=== PATIENT | female | born 1945 | race Caucasian/White ===

== ENCOUNTER → 2016-11-16 | Outpatient (CLI) | payer MEDICARE, OTHER ==
[2015-10-10 14:57] VITALS: BP 130/57
[~2016-11-16] MED LIST: ASCO10002 PO; ASPI-482 PO; ATOR10TA60 PO; CALC1TAB PO; FERR-26 PO; FERR47.57 PO; FOLI0.8C PO; FOLI1TAB16 PO; GLUC100018 PO; HYDR-2762 PO; MULT-650 PO; WARF2TAB7 PO; WARF3TAB7 PO; ZOLPIDEM 5 MG TABLET. PO ONE; [UNRECOGNIZED DRUG - CODE] PO
== END | disposition home or self-care (01) ==
LOC: SLPLAB 18:16
PROVIDERS: ATTEND Internal Medicine Pulmonary Disease
DX: G47.33 Obstructive sleep apnea (adult) (pediatric) (principal)
CPT/HCPCS: 95810

== ENCOUNTER 2018-06-23 07:25 | Day surgery (SDC) | payer MEDICARE, OTHER ==
[~2018-06-23] VITALS: Ht 157.5 cm; Wt 109.0 kg
[~2018-06-23 07:25] MED LIST changes: +BUPIVACAINE 0.25% 50 ML VIAL. ONE; -FERR-26 PO; +FERR325T14 PO; +HYDROmorphone 2 MG/ML VIAL IV PRN; +IV RINGERS,LACTATED 1000ML 1,000 ML IV SCH; +LIDOCAINE 1% PF 2 ML VIAL. ID PRN; +MORPHINE SULFATE 2 MG/ML VIAL. IV PRN; +ONDANSETRON PF 4 MG/2 ML VIAL. IV PRN; +PROCHLORPERAZINE 10 MG/2 ML VIAL. IV PRN; -WARF2TAB7 PO; +WARF2TAB96 PO; +WARF3TAB50 PO; -WARF3TAB7 PO; -ZOLPIDEM 5 MG TABLET. PO ONE; +fentaNYL PF VIAL 100 MCG/2 ML VIAL IV PRN
--- NOTE | 2018-06-23 07:54 | DISCH ---
DISCHARGE INSTRUCTIONS Condition on Discharge Condition on Discharge: Stable Activity After Discharge Activity Instructions for Disc: Other, see below (no hard grasp with operative hand) Bathing Instructions: Shower-keep dressing dry Lifting Instructions after Dis: No heavy lifting, No pulling or pushing, Do not lift >10 pounds Exercise Instruction after Dis: Progress as tolerated Driving Instructions after Dis: Do not drive Weight Bearing Status after Di: Full weight bearing Diet after Discharge Diet after Discharge: Regular Diet Texture: Regular Liquid Texture: Thin Liquid Swallowing Supervision: None needed Wound Incision Care Wound/Incision Care: Ice to area for comfort, Do not change dressing (keep dressing dry and shower do not change unless soiled) Contacting the DRLeif after DC Call your doctor for: Concerns you may have Follow-Up Follow up with: Justo 10 days Treatment/Equipment after DC Adaptive Equipment Issued: None MARIE TOBIN MD Jun 23, 2018 07:54
[2018-06-23] MEDS ORDERED: HYDR-971 PO (07:55)
[2018-06-23] MEDS ORDERED: LOSA1TAB22 PO (08:02)
[2018-06-23] MEDS ORDERED: ONDANSETRON PF 4 MG/2 ML VIAL. ONE (08:44)
[2018-06-23] MEDS ORDERED: PROPOFOL 20 ML IV ONE (08:44)
[2018-06-23] MEDS ORDERED: DEXAMETHASONE SOD PHOS 20 MG/5 ML VIAL. ONE (08:44)
[2018-06-23] MEDS ORDERED: LIDOCAINE 2% PF Vial for OR 5 ML VIAL. ONE (08:44)
[2018-06-23] MEDS ORDERED: fentaNYL PF VIAL 100 MCG/2 ML VIAL ONE (08:44)
[2018-06-23] MEDS ORDERED: HYDROcodone/APAP 5/325MG 1 TAB TABLET PO ONE (09:15)
[2018-06-23 10:00] VITALS: BP 139/65
--- NOTE | 2018-06-23 11:11 | PDOC4 ---
Operative Note Operative Note Date of surgery: 06/23/2018 Preoperative diagnosis: Left carpal tunnel syndrome Postoperative diagnosis: Same with moderate median nerve compression Operative procedure: Left carpal tunnel release Surgeon: Justo Anesthesia: Gen. Estimated blood loss: <1 mL Operative indications:Shavonne is a 72 -year-old female with numbness and tingling and occasional pain in the left median nerve distribution unresponsive to nonoperative treatment including bracing. EMG confirmed the clinical diagnosis of carpal tunnel syndrome and since she is been unresponsive to nonoperative management and her symptoms worsening she elects to proceed with surgical evaluation and treatment. I went over with her risks benefits postoperative course including the possibility of nerve or blood vessel damage infection continued pain medical or other anesthetic complications among others as well as incisional tenderness. All her questions were answered she wishes to proceed with surgical evaluation and treatment. Operative text: Patient was identified procedure verified patient placed in the supine position on the operating table. After adequate amounts of general anesthesia were administered the left upper extremity was placed with an arm tourniquet exsanguinated by Esmarch bandage tourniquet inflated to 250 mmHg and an incision was made longitudinally just distal to the distal wrist crease. Dissection was carried out down to the transverse carpal ligament which was divided longitudinally under direct vision. This was extended with blunt tipped scissors distally and proximally to ensure complete release of the transverse carpal ligament. Median nerve was noted to have moderate compression no synovitis was noted of the flexor tendons or other abnormality in the carpal tunnel. Thorough irrigation carried out normal saline solution nylon suture in vertical mattress fashion was used to close skin sterile dressings were applied fingers are noted be warm pink find deflation of tourniquet patient was returned recovery room stable condition having tolerated procedure well MARIE TOBIN MD Jun 23, 2018 11:11
== END 2018-06-23 10:25 | disposition home or self-care (01) ==
LOC: SURG 07:25
PROVIDERS: ATTEND Orthopaedic Surgery
DX: G56.02 Carpal tunnel syndrome, left upper limb (principal); E78.00 Pure hypercholesterolemia, unspecified; I10 Essential (primary) hypertension; Z98.890 Other specified postprocedural states; E66.9 Obesity, unspecified; Z87.39 Personal history of other diseases of the musculoskeletal system and connective tissue; Z96.653 Presence of artificial knee joint, bilateral; Z72.89 Other problems related to lifestyle; Z87.891 Personal history of nicotine dependence; Z79.82 Long term (current) use of aspirin
CPT/HCPCS: 64721; J0690; J1100; J2001; J2405; J2704; J3010; J3490